=== PATIENT | female | born 1985 | race Native Hawaiian/Other Pacific Islander ===

== ENCOUNTER 2022-05-21 10:16 | Outpatient (CLI) | payer BC | END 2022-05-21 22:12 | disposition home or self-care (01) | LOC: CT 10:16 | PROVIDERS: ATTEND Internal Medicine | DX: R10.31 Right lower quadrant pain (principal); R10.829 Rebound abdominal tenderness, unspecified site; R50.9 Fever, unspecified | CPT/HCPCS: Q9963 ==